=== PATIENT | female | born 1990 | race Caucasian/White ===

== ENCOUNTER 2022-06-15 13:21 | Outpatient (CLI) | payer MEDICAID, SELFPAY | END 2022-06-15 13:22 | disposition home or self-care (01) | PROVIDERS: PCP Physician Assistant; Visit Provider Family Medicine | DX: M54.16 Radiculopathy, lumbar region (principal); M51.36 Other intervertebral disc degeneration, lumbar region | CPT/HCPCS: 62323; J0702; Q9966 ==

== ENCOUNTER 2023-06-28 09:40 | Outpatient (CLI) | payer BC, SELFPAY | END 2023-06-28 09:41 | disposition home or self-care (01) | LOC: INJ CL 09:44 | PROVIDERS: PCP Physician Assistant; Visit Provider Family Medicine | DX: M51.36 Other intervertebral disc degeneration, lumbar region (principal); M54.16 Radiculopathy, lumbar region | CPT/HCPCS: 62323; J0702; Q9966 ==

== ENCOUNTER 2023-11-01 10:03 | Outpatient (CLI) | payer BC, SELFPAY | END 2023-11-01 10:04 | disposition home or self-care (01) | PROVIDERS: PCP Physician Assistant; Visit Provider Family Medicine | DX: M54.16 Radiculopathy, lumbar region (principal); M51.36 Other intervertebral disc degeneration, lumbar region | CPT/HCPCS: 62323; J0702; Q9966 ==

== ENCOUNTER 2024-03-06 10:12 | Outpatient (CLI) | payer BC, SELFPAY | END 2024-03-06 10:13 | disposition home or self-care (01) | PROVIDERS: PCP Physician Assistant; Visit Provider Family Medicine | DX: M54.16 Radiculopathy, lumbar region (principal); M51.36 Other intervertebral disc degeneration, lumbar region | CPT/HCPCS: 62323; J0702; Q9966 ==

== ENCOUNTER 2024-09-25 10:58 | Outpatient (CLI) | payer BC, SELFPAY | END 2024-09-25 10:59 | disposition home or self-care (01) | PROVIDERS: PCP Physician Assistant; Visit Provider Family Medicine | DX: M54.16 Radiculopathy, lumbar region (principal); M51.369 Other intervertebral disc degeneration, lumbar region without mention of lumbar back pain or lower extremity pain | CPT/HCPCS: 62323; J0702; Q9966 ==

== ENCOUNTER 2024-12-18 07:50 | Outpatient (CLI) | payer BC, SELFPAY | END 2024-12-18 07:51 | disposition home or self-care (01) | LOC: INJ CL 07:52 | PROVIDERS: PCP Physician Assistant; Visit Provider Family Medicine | DX: M54.16 Radiculopathy, lumbar region (principal); M51.369 Other intervertebral disc degeneration, lumbar region without mention of lumbar back pain or lower extremity pain | CPT/HCPCS: 62323; J0702; Q9966 ==

== ENCOUNTER 2025-06-18 10:30 | Outpatient (CLI) | payer BC, SELFPAY | END 2025-06-18 10:31 | disposition home or self-care (01) | LOC: INJ CL 10:31 | PROVIDERS: PCP Physician Assistant; Visit Provider Family Medicine | DX: M54.16 Radiculopathy, lumbar region (principal); M51.369 Other intervertebral disc degeneration, lumbar region without mention of lumbar back pain or lower extremity pain | CPT/HCPCS: 62323; Q9966 ==